=== PATIENT | male | born 1965 | race American Indian/Alaskan Native ===

== ENCOUNTER 2020-10-31 07:41 | Outpatient (CLI) | payer OTHER ==
[2020-10-31] MEDS ORDERED: ALBUTEROL 2.5 MG/3 ML NEBU IH ONE (08:43)
== END 2020-10-31 07:42 | disposition home or self-care (01) ==
LOC: PF 07:41
PROVIDERS: ATTEND Internal Medicine
DX: J43.8 Other emphysema (principal)
CPT/HCPCS: 94060; 94640; A9270

== ENCOUNTER 2021-06-07 14:29 | Outpatient (CLI) | payer OTHER ==
[2021-06-07] MEDS ORDERED: ALBUTEROL 2.5 MG/3 ML NEBU IH ONE (15:48)
== END 2021-06-07 14:30 | disposition home or self-care (01) ==
LOC: PF 14:29
PROVIDERS: ATTEND Internal Medicine
DX: J43.9 Emphysema, unspecified (principal); Z02.71 Encounter for disability determination
CPT/HCPCS: 94640; A9270